=== PATIENT | male | born 1965 | race Caucasian/White ===

== ENCOUNTER 2017-07-18 10:10 | Emergency (ER) | payer MEDICAID, OTHER ==
[~2017-07-18] VITALS: Ht 165.1 cm; Wt 50.5 kg
[2017-07-18 10:13] VITALS: Ht 165.1 cm; Wt 50.5 kg
[2017-07-18] MEDS ORDERED: ASPIRIN 325 MG TAB PO STA (10:24)
[2017-07-18] MEDS ORDERED: NITROGLYCERIN (SL) 0.4 MG TAB SL PRN (10:30)
--- NOTE | 2017-07-18 10:47 | RADRPT ---
PROCEDURE: XR Chest. CLINICAL INDICATION: chest pain TECHNIQUE: Single frontal view of the chest was obtained COMPARISON: None FINDINGS: The heart and mediastinum are within normal limits. The lungs are hyperinflated. The lungs are clear. There is no pleural effusion or pneumothorax. RPTAT: AA IMPRESSION: No acute disease. Hyperinflated lungs. .Lane May MD, MD Date Time Electronically viewed and signed by .Lane May MD, on 07/18/2017 10:47 .S/
--- NOTE | 2017-07-18 11:06 | ERD ---
ER Documentation Chief Complaint Date/Time DATE: 07/18/17 TIME: 11:00 Chief Complaint chest pain x 1 week HPI This is a very pleasant 51-year-old male that presents to the emergency department complaining of intermittent chest pain for 1 week. He states that the chest pain is localized to the left chest wall and does radiate to the back. The pain will last for roughly 30 minutes and then will spontaneously resolve. The patient stated this morning upon awakening the chest pain significantly worsened to 10 out of 10 in intensity, continue to radiate to the back with associated symptoms of shortness of breath dizziness and a unilateral left-sided headache. He did also indicate that the chest pain was now worse with inspiration and therefore he went to an urgent care clinic and was immediately sent to the emergency department to be further evaluated. He has a history of hypertension and does not smoke tobacco and drinks alcohol socially. He has no family history of coronary artery disease in his first- degree relatives. He does state that the pain is exacerbated when he moves his left upper extremity. He has never had any similar pain in the past. He denies any recent travel. He has no neck pain or fever shaking or chills. ROS All systems reviewed and are negative except as per history of present illness. Allergies Allergies: Coded Allergies: No Known Allergy (Unverified , 07/18/17) PMhx/Soc History of Surgery: No Anesthesia Reaction: No Hx Neurological Disorder: No Hx Respiratory Disorders: No Hx Cardiac Disorders: No Hx Psychiatric Problems: No Hx Miscellaneous Medical Probl: Yes (HTN, Chronic back pain.) Hx Alcohol Use: Yes Hx Substance Use: No Hx Tobacco Use: No Smoking Status: Never smoker Physical Exam Vitals Vital Signs Date Time Temp Pulse Resp B/P Pulse Ox O2 Delivery O2 Flow Rate FiO2 07/18/17 10:13 98.0 79 18 164/102 100 Physical Exam Constitutional:Well-developed. Well-nourished. HEENT:Normocephalic. Atraumatic.Pupils were equal round reactive to light. Moist mucous membranes.No tonsillar exudates. Funduscopy exam shows sharp optic disks bilaterally and venous pulsations were present Neck: No nuchal rigidity. No lymphadenopathy. No posterior cervical spine tenderness or step-offs. Respiratory: Not using accessory muscles of respiration.Lungs were clear to auscultation bilaterally. No rhonchi. No rales. No wheezing. Cardiovascular: Regular rate regular rhythm.No murmurs. No rubs were appreciated.S1, S2 normal. Distal pulses are palpable 2+ bilaterally. Reproducible tenderness of the left chest wall no crepitus no ecchymosis no flail chest. GI: Abdomen was soft. Nontender. Non Distended. No pulsatile abdominal masses or bruits. No rebound. No guarding. Bowel sounds were present and normal. Muscle skeletal: Full range of motion of both the upper and lower extremities bilaterally.Normal muscle tone.No assymetrical calf tenderness or swelling. Skin: No petechia, no purpura. No lesions on the palms or the soles of the feet. No maculopapular rash. NEURO: Patient was alert, awake, orientated x3.No facial droop. Gait observed and normal with no ataxia.Speech had regular rate and rhythm. No focal neurological deficits. Romberg sign Negative. No pronator drift Result Diagram: 07/18/17 1035 07/18/17 1035 Results 24 hrs Laboratory Tests Test 07/18/17 10:35 White Blood Count 5.210^3/ul Red Blood Count 4.2010^6/ul Hemoglobin 14.2g/dl Hematocrit 41.7% Mean Corpuscular Volume 99.3fl Mean Corpuscular Hemoglobin 33.8pg Mean Corpuscular Hemoglobin Concent 34.1g/dl Red Cell Distribution Width 12.3% Platelet Count 14266^3/UL Mean Platelet Volume 10.3fl Neutrophils % 68.4% Lymphocytes % 13.1% Monocytes % 15.6% Eosinophils % 1.7% Basophils % 1.0% Nucleated Red Blood Cells % 0.0/100WBC Neutrophils # 3.610^3/ul Lymphocytes # 0.710^3/ul Monocytes # 0.810^3/ul Eosinophils # 0.110^3/ul Basophils # 0.110^3/ul Nucleated Red Blood Cells # 0.010^3/ul Prothrombin Time 12.5Sec Prothrombin Time Ratio 1.0 INR International Normalized Ratio 0.93 Activated Partial Thromboplast Time 28.1Sec Sodium Level 140mmol/L Potassium Level 3.8mmol/L Chloride Level 99mmol/L Carbon Dioxide Level 31mmol/L Anion Gap 14 Blood Urea Nitrogen 8mg/dl Creatinine 0.73mg/dl Glucose Level 113mg/dl Calcium Level 9.8mg/dl Total Bilirubin 0.7mg/dl Direct Bilirubin 0.00mg/dl Indirect Bilirubin 0.7mg/dl Aspartate Amino Transf (AST/SGOT) 58IU/L Alanine Aminotransferase (ALT/SGPT) 73IU/L Alkaline Phosphatase 102IU/L Creatine Kinase 39IU/L Creatine Kinase Index 1.3 Creatinine Kinase MB (Mass) 0.51ng/ml Troponin I < 0.012ng/ml B-Type Natriuretic Peptide 103PG/ML Total Protein 8.4g/dl Albumin 4.8g/dl Globulin 3.60g/dl Albumin/Globulin Ratio 1.33 Lipase 124U/L Current Medications Medications (Trade) Dose Ordered Sig/Migdalia Route PRN Reason Start Time Stop Time Status Last Admin Dose Admin Aspirin (Aspirin) 325 mg ONCE STAT PO 07/18/17 10:24 07/18/17 10:25 DC 07/18/17 10:48 Nitroglycerin (Nitroglycerin (Sl Tab) 0.4 Mg) 1 tab Q5M UP TO 3 DOSES PRN SL CHEST PAIN 07/18/17 10:30 07/18/17 10:48 IV Flush 10 ml 10 ml STK-MED ONCE .ROUTE 07/18/17 11:30 07/18/17 11:31 DC Sodium Chloride 100 ml @ ud STK-MED ONCE .ROUTE 07/18/17 11:30 07/18/17 11:31 DC Iohexol (Omnipaque) 100 ml @ ud STK-MED ONCE .ROUTE 07/18/17 11:30 07/18/17 11:31 DC Iohexol (Omnipaque 350mg/ ml) 50 ml STK-MED ONCE .ROUTE 07/18/17 11:30 07/18/17 11:31 DC Ketorolac Tromethamine (Toradol) 30 mg ONCE STAT IV 07/18/17 11:40 07/18/17 11:41 DC 07/18/17 12:05 Procedures/MDM The patient presented to the emergency department with chest pain. My clinical evaluation and workup was to distinguish minor causes of chest pain from acute life threatening conditions such as myocardial infarction, pulmonary embolism, aortic dissection, esophageal rupture, cardiac tamponade. The patient was placed on a monitor and storage bin tender and continuous pulse oximetry. IV access established by nursing staff. He was given aspirin and nitroglycerin with no improvement of his discomfort. 12 Lead EKG tracing ordered and reviewed by myself showed: Normal sinus rhythm of 69 bpm and no arrhythmia. PA interval normal. QRS duration normal. No ST segment elevation No ST segment depression. No changes consistent with acute ischemia. I did obtain a CT scan of the patient's chest which showed no evidence of an aortic dissection or pulmonary embolism as the patient was complaining of shortness of breath and chest pain that radiated to the back. The patients chest pain was reproduced by palpation and horizontal flexion of the arms. It was my clinical impression that the pain was a result of inflammation of the skin and subcutaneous structures of the chest wall versus myocardial ischemia. I felt the patient had low-risk chest pain and could therefore be safely discharged with close follow-up. The patient also presented to the emergency department with an acute single headache that presented within hours of onset my differential diagnosis included but was not limited to meningitis, SAH, intracerebral hemorrhage, hypertensive encephalopathy, cranial artery dissection, cerebral venous sinus thrombosis, traumatic, acute sinusitis. The patient has no ocular symptoms to suggest temporal neuritis, acute narrow-angle glaucoma or pituitary apoplexy. The patient did not appear to have a toxic or metabolic etiology such as fever, hypoglycemia, high-altitude disease or carbon monoxide poisoning. This was not the patients worse headache of their life. The patient had a complete neurologic and fundoscopic exam performed by myself that was normal with no focal neurological deficits or retinal hemorrhage. The patient stated this headache was not severe or distinct from other headaches and the history with the physical exam findings did not likely suggest SAH. Therefore, I did not feel it was clinically necessary to perform a lumbar puncture and CSF analysis. End of the head showed no acute intracerebral hemorrhage mass-effect or midline shift. I did feel the patient had a could have been exacerbated by his elevated blood pressure which resolved in the emergency department after analgesia control and clonidine no signs of endorgan damage to suggest hypertensive emergency or urgency. His chest radiograph did show evidence of hyperinflation but the patient has no history of tobacco use and no history of asthma or obstructive pulmonary disease. He was in no respiratory distress on these findings were indicated to the patient and instructed to follow-up with an outpatient aluminum fabrication supervisor. The patient was discharged home in fair condition. They were instructed to return to the emergency department at any time if there was any worsening of their condition. The patient stated they would follow up with their PCP in the next 24-48 hours to initiate a suitable medication regimen under the care of their PCP as well as to allow their PCP to monitor any drug reactions. The patient was discharged home with prescriptions after they gave informed consent to the new medication. They were also fully informed by myself on the adverse effects and adverse drug interactions in order to provide adequate safeguards to prevent possible adverse reactions to medications. Departure Diagnosis: Primary Impression: Pleurisy Additional Impression: Headache Headache type: tension-type Headache chronicity pattern: acute headache Intractability: not intractable Qualified Code: G44.209 - Acute non intractable tension-type headache Condition: IAMNI Buckner Jul 18, 2017 11:06
[2017-07-18 11:07] LABS: BASOPHIL # 0.1 10^3/ul (0.0-0.1); EOSINOPHILS # 0.1 10^3/ul (0.0-0.5); EOSINOPHILS % 1.7 % (0.0-7.0); HEMATOCRIT 41.7 % (42.0-52.0); HEMOGLOBIN 14.2 g/dl (14.0-18.0); LYMPHOCYTES # 0.7 10^3/ul (0.8-2.9); LYMPHOCYTES % 13.1 % (15.0-51.0); MEAN CORPUSCULAR HEMOGLOBIN 33.8 pg (29.0-33.0); MEAN CORPUSCULAR HGB CONC 34.1 g/dl (32.0-37.0); MEAN CORPUSCULAR VOLUME 99.3 fl (82.0-101.0); MEAN PLATELET VOLUME 10.3 fl (7.4-10.4); MONOCYTE # 0.8 10^3/ul (0.3-0.9); MONOCYTES % 15.6 % (0.0-11.0); NEUTROPHIL # 3.6 10^3/ul (1.6-7.5); NEUTROPHILS % 68.4 % (39.0-77.0); PLATELET COUNT 169 10^3/UL (140-415); RED CELL DISTRIBUTION WIDTH 12.3 % (11.5-14.5); WHITE BLOOD COUNT 5.2 10^3/ul (4.8-10.8)
[2017-07-18 11:17] LABS: ALANINE AMINOTRANSFERASE 73 IU/L (13-69); ALBUMIN 4.8 g/dl (3.3-4.9); ALBUMIN/GLOBULIN RATIO 1.33; ALKALINE PHOSPHATASE 102 IU/L (42-121); ANION GAP 14 (8-16); ASPARTATE AMINO TRANSFERASE 58 IU/L (15-46); BILIRUBIN,INDIRECT 0.7 mg/dl (0-1.1); BILIRUBIN,TOTAL 0.7 mg/dl (0.2-1.3); BLOOD UREA NITROGEN 8 mg/dl (7-20); CALCIUM 9.8 mg/dl (8.4-10.2); CARBON DIOXIDE 31 mmol/L (21-31); CHLORIDE 99 mmol/L (97-110); CREATINE KINASE 39 IU/L (23-200); CREATININE 0.73 mg/dl (0.61-1.24); GLUCOSE 113 mg/dl (70-220); POTASSIUM 3.8 mmol/L (3.5-5.1); SODIUM 140 mmol/L (135-144); TOTAL PROTEIN 8.4 g/dl (6.1-8.1)
[2017-07-18 11:20] LABS: INR 0.93; PROTIME 12.5 Sec (12.2-14.2)
[2017-07-18 11:21] LABS: PARTIAL THROMBOPLASTIN TIME 28.1 Sec (25.0-35.0)
[2017-07-18 11:29] LABS: B-TYPE NATRIURETIC PEPTIDE 103 PG/ML (0-125)
[2017-07-18] MEDS ORDERED: SOD CHLORIDE 0.9% 100 ML ONE (11:30)
[2017-07-18] MEDS ORDERED: IOHEXOL 100 ML ONE (11:30)
[2017-07-18] MEDS ORDERED: IOHEXOL 350MG/ML 50 ML BTL ONE (11:30)
[2017-07-18 11:34] LABS: CK-MB 0.51 ng/ml (0.0-2.4); TROPONIN-I < 0.012 ng/ml (0.00-0.12)
[2017-07-18] MEDS ORDERED: KETOROLAC 30 MG INJ IV STA (11:40)
--- NOTE | 2017-07-18 11:47 | RADRPT ---
PROCEDURE: Noncontrast CT Head. CLINICAL INDICATION: Left sided headache. Numbness. TECHNIQUE: Noncontrast CT of the head was obtained. The administered radiation dose was CTDI vol = 44.95 mGy, DLP = 720.23 mGy-cm. One or more of the following dose reduction techniques were used: Au tomated exposure control, Adjustment of the mA and/or kV according to patient size, or Use of iterat binta reconstruction technique. COMPARISON: There are no similar studies submitted for comparison. FINDINGS: There is mild generalized cerebral volume loss. There is minimal periventricular hypoattenuation suggesting chronic microvascular ischemic changes. There is no loss of méndez-white differentiation to suggest acute territorial infarction. There is no acute intracranial hemorrhage. There is no mass effect. No midline shift is identified. The orbits are within normal limits. The paranasal sinuses are well aerated. No destructive osseous lesion is identified. IMPRESSION: 1. No acute intracranial hemorrhage. 2. Mild generalized cerebral volume loss. 3. Minimal chronic microvascular ischemic changes. Further findings as detailed above. RPTAT: PP .Adan Tucker MD, MD Date Time Electronically viewed and signed by .Adan Tucker MD, on 07/18/2017 11:47 .F/
--- NOTE | 2017-07-18 12:05 | RADRPT ---
PROCEDURE: CTA Chest and pulmonary angiogram. CLINICAL INDICATION: Chest pain and shortness of breath. TECHNIQUE: CT scan of the chest and CT pulmonary angiogram was performed on a multidetector high-r [employer] CT scanner. High-resolution thin slice coronal and sagittal imaging was obtained from the axial source images. 3-D volumetric rendered post processing was performed as well. The patient w as examined following the uncomplicated intravenous administration of 150 cc of Omnipaque-350. The i mages were reviewed on a PACS workstation. The total exam CTDI equals 4.38, and 16.9 and the total e xam DLP equals 203.59 mGy-cm. One or more of the following dose reduction techniques were used: Automated exposure control. Adjustment of the mA and/or kV according to patient size. Use of iterative reconstruction technique. COMPARISON: No prior studies are available for comparison. FINDINGS: CT chest: The lungs are clear. No focal opacification, effusion, pneumothorax, edema, or nodules are seen. T he central tracheobronchial tree is clear. The lungs are hyperinflated. There is mild diffuse bronch ial wall thickening suggesting nonspecific airway inflammation. The mediastinum is unremarkable without evidence for mass or lymphadenopathy. The vascular structur es of the mediastinum are normal in course and caliber. The heart size is normal without pericardia l thickening or effusion. The axillary, subpectoral, and supraclavicular regions are unremarkable. Imaging obtained through the upper abdomen is equally unremarkable. The adrenal glands are symmetri aidan normal. The surrounding chest wall is unremarkable. The osseous structures are unremarkable. CT pulmonary angiogram: No thrombus, clot, filling defect, or pulmonary web is identified. The pulmonary arteries are shahnaz l in caliber and morphology. No filling defect is present to suggest pulmonary embolism. There is no evidence for pulmonary arterial hypertension. IMPRESSION: 1. No evidence for pulmonary embolism. 2. Hyperexpanded lungs. Diffuse bronchial wall thickening suggesting nonspecific airway inflammatio n which is frequently seen in smokers , asthma and other reactive airway disease. RPTAT: BB .Nelia Piña MD, MD Date Time Electronically viewed and signed by .Nelia Piña MD, on 07/18/2017 12:04 .O/
[2017-07-18] MEDS ORDERED: NAPR-260 PO (12:21)
[2017-07-18 12:29] LABS: CHOL/HDL RATIO 2.1 RATIO
[2017-07-18 12:51] VITALS: BP 148/84; PULSE 74; RESP 20; TEMP 98.4
== END 2017-07-18 12:53 | disposition home or self-care (01) ==
LOC: E/R 10:10
DX: R09.1 Pleurisy (principal); G44.209 Tension-type headache, unspecified, not intractable; I10 Essential (primary) hypertension; R40.2142 Coma scale, eyes open, spontaneous, at arrival to emergency department; R40.2252 Coma scale, best verbal response, oriented, at arrival to emergency department; R40.2362 Coma scale, best motor response, obeys commands, at arrival to emergency department; R93.0 Abnormal findings on diagnostic imaging of skull and head, not elsewhere classified; R06.02 Shortness of breath
CPT/HCPCS: 70450; 71010; 71275; 80053; 80061; 82550; 82553; 83690; 83880; 84484; 85025; 85610; 85730; 93005; 96374; J1885; Q9967; Z7502; Z7610